=== PATIENT | female | born 1990 | race Caucasian/White ===

== ENCOUNTER 2017-06-28 12:04 | Emergency (ER) | payer MEDICAID ==
[~2017-06-28 12:04] MED LIST: AMOX-559 PO; CIPR-344 PO; HYDR-318 PO; HYDR-4309 PO; IBUP800T37 PO; LOR5/325 PO; OXYC-865 PO; SERT-173 PO
[2017-06-28 12:15] VITALS: BP 123/84
--- NOTE | 2017-06-28 12:48 | ER Report ---
History and Physical Time Seen By MD: 12:20 HPI/ROS CHIEF COMPLAINT: Dysuria, urinary tract infection symptoms HISTORY OF PRESENT ILLNESS: Patient is a 26-year-old female who presents to the emergency department complaining of burning with urination that is severe since this past . She has been self-medicating with [id number] Azo without symptomatic relief. She denies any vaginal discharge. She denies any suprapubic abdominal discomfort. She denies any prior history of STDs. Patient denies fevers or chills. Patient has no prior similar episodes. REVIEW OF SYSTEMS: Respiratory: No cough, no dyspnea. Cardiovascular: No chest pain, no palpitations. Gastrointestinal: No vomiting, no abdominal pain. Musculoskeletal: No back pain. : Burning with urination tenderness to the vulvar area. Allergies: Coded Allergies: No Known Drug Allergies (Unverified , 03/19/16) Home Meds Active Scripts Oxycodone Hcl/Acetaminophen (PERCOCET 5-325 MG TABLET) 1 Each Tablet, 1-2 EACH PO Q4-6H for PAIN, #20 TAB 0 Refills Prov:MARYCARMEN MILLER MD 06/28/17 Acyclovir (ACYCLOVIR) 400 Mg Tablet, 400 MG PO TID for 7 Days, #20 TAB 0 Refills Prov:MARYCARMEN MILLER MD 06/28/17 Hydrocodone Bit/Acetaminophen (HYDROCODON-ACETAMINOPHEN 5-325) 1 Each Tablet, 1 EACH PO Q4-6H Y for PAIN, #12 TAB 0 Refills TAKE ONE TABLET BY MOUTH EVERY 4-6 HOURS NEEDED FOR PAIN Prov:MARYCARMEN MILLER MD 01/02/17 Amoxicillin/Pot Clav 875-125 Mg Tab (AUGMENTIN 875-125 TABLET) 1 Each Tablet, 1 TAB PO Q12H, #13 TAB 0 Refills Prov:MARYCARMEN MILLER MD 01/02/17 Oxycodone Hcl/Acetaminophen (PERCOCET 5-325 MG TABLET) 1 Each Tablet, 1 EACH PO Q4-6H for PAIN, #30 TAB Prov:MARYCARMEN MILLER MD 03/19/16 Reported Medications Hydrocodone/Acetaminophen (Lortab 7.5-325 mg Tablet) 1 Each Tablet, 1-2 TAB PO Q4-6H Y for PAIN, #80 03/26/16 Ibuprofen (IBUPROFEN) 800 Mg Tablet, 1 TAB PO Q8H Y for PAIN, TAB 03/25/16 Past Medical/Surgical History Noncontributory towards the chief complaint Hx Smoking: Yes (SMOKES LESS THEN A PACK A DAY FOR 2+ HOURS) Smoking Status: Current: Every Day Smoker Exposure to Second Hand Smoke?: No Hx Substance Use Disorder: No Hx Alcohol Use: No Physical Exam General Appearance: The patient is alert, has no immediate need for airway protection and no current signs of toxicity. Gastrointestinal: Abdomen is soft and non tender, no masses, bowel sounds normal. : Exam was performed with the nurse Caitlin vidal. The patient has herpetic lesions to the vulvar area. A herpes viral PCR swab was sent .Patient gave permission for a male lean process deployment consultant to remain at bedside during exam Extremities have full range of motion and are non tender. Skin: No other rashes or lesions. Medical Decision Making Data Points Laboratory Hematology Test 06/28/17 12:07 Urine Color Yellow Urine Clarity Cloudy Urine pH 6.0 pH (4.8-9.5) Urine Specific [place] 1.001 Urine Protein Negative mg/dL (NEGATIVE) Urine Glucose (UA) Negative mg/dL (NEGATIVE) Urine Ketones Negative mg/dL (NEGATIVE) Urine Blood Large (NEGATIVE) Urine Nitrite Negative (NEGATIVE) Urine Bilirubin Negative (NEGATIVE) Urine Urobilinogen Negative mg/dL (0.2-1.9) Urine Leukocyte Esterase Moderate (NEGATIVE) Urine RBC 2 /HPF (0-2/HPF) Urine WBC None /HPF (0-5/HPF) Urine Squamous Epithelial Cells Many /LPF (</=FEW) Urine Bacteria Negative /HPF (NONE-FEW) Urine Mucus Few /HPF (NONE-FEW) Chemistry Test 06/28/17 12:07 Urine Color Yellow Urine Clarity Cloudy Urine pH 6.0 pH (4.8-9.5) Urine Specific [place] 1.001 Urine Protein Negative mg/dL (NEGATIVE) Urine Glucose (UA) Negative mg/dL (NEGATIVE) Urine Ketones Negative mg/dL (NEGATIVE) Urine Blood Large (NEGATIVE) Urine Nitrite Negative (NEGATIVE) Urine Bilirubin Negative (NEGATIVE) Urine Urobilinogen Negative mg/dL (0.2-1.9) Urine Leukocyte Esterase Moderate (NEGATIVE) Urine RBC 2 /HPF (0-2/HPF) Urine WBC None /HPF (0-5/HPF) Urine Squamous Epithelial Cells Many /LPF (</=FEW) Urine Bacteria Negative /HPF (NONE-FEW) Urine Mucus Few /HPF (NONE-FEW) Urinalysis Test 06/28/17 12:07 Urine Color Yellow Urine Clarity Cloudy Urine pH 6.0 pH (4.8-9.5) Urine Specific [place] 1.001 Urine Protein Negative mg/dL (NEGATIVE) Urine Glucose (UA) Negative mg/dL (NEGATIVE) Urine Ketones Negative mg/dL (NEGATIVE) Urine Blood Large (NEGATIVE) Urine Nitrite Negative (NEGATIVE) Urine Bilirubin Negative (NEGATIVE) Urine Urobilinogen Negative mg/dL (0.2-1.9) Urine Leukocyte Esterase Moderate (NEGATIVE) Urine RBC 2 /HPF (0-2/HPF) Urine WBC None /HPF (0-5/HPF) Urine Squamous Epithelial Cells Many /LPF (</=FEW) Urine Bacteria Negative /HPF (NONE-FEW) Urine Mucus Few /HPF (NONE-FEW) ED Course/Re-evaluation ED Course 06/28/2017 12:47:02 pm 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 Plan will be oral acyclovir as well as pain medication. I will vp & general counsel patient on safe sex practices. Decision to Disposition Date: Jun 28, 2017 Decision to Disposition Time: 13:16 Depart Departure Impression: Primary Impression: Herpes genitalis in women Condition: Improved Disposition: HOME OR SELF-CARE Referrals: AMMY AREVALO MD For routine follow-up New Scripts Hydrocodone Bit/Acetaminophen (HYDROCODON-ACETAMINOPHEN 5-325) 1 Each Tablet 1-2 EACH PO Q4-6H Y for PAIN, #20 TAB 0 Refills TAKE ONE TABLET BY MOUTH EVERY 4-6 HOURS NEEDED FOR PAIN Prov: MARYCARMEN MILLER MD 06/28/17 Acyclovir (ACYCLOVIR) 400 Mg Tablet 400 MG PO TID for 7 Days, #20 TAB 0 Refills Prov: MARYCARMEN MILLER MD 06/28/17 Patient Instructions: Genital Herpes Simplex (ED) MARYCARMEN MILLER MD Jun 28, 2017 12:48
[2017-06-28] MEDS ORDERED: ACYCLOVIR 200 MG CAP PO ONE (12:55)
[2017-06-28] MEDS ORDERED: ACYC-50 PO (12:59)
[2017-06-28] MEDS ORDERED: OXYC-865 PO ×2 (12:59→13:01)
[2017-06-28] MEDS ORDERED: PER PO (13:00)
[2017-06-28] MEDS ORDERED: LOR5/325 PO (13:16)
== END 2017-06-28 13:26 | disposition home or self-care (01) ==
LOC: ER 12:14
DX: A60.00 Herpesviral infection of urogenital system, unspecified (principal)
CPT/HCPCS: 81001; 87088; 87529; 99283

== ENCOUNTER 2017-11-30 09:04 | Emergency (ER) | payer MEDICAID ==
[~2017-11-30 09:04] MED LIST changes: +ACYC-50 PO; +PER PO
[2017-11-30] MEDS ORDERED: NS(*) 0.9% 1000 ML BAG 1,000 ML IV ONE (09:50)
[2017-11-30] MEDS ORDERED: AMPICILLIN/SULBACT (*) 3 GM VL 3 GM in NS(*) 0.9% 100 ML BAG 100 ML IVPB ONE (09:50)
[2017-11-30] MEDS ORDERED: MORPHINE 4 MG/ML SDV IVP ONE (09:50)
[2017-11-30] MEDS ORDERED: IOPAMIDOL 76% 75 ML INFUS BTL 75 ML ONE (10:05)
[2017-11-30 10:22] LABS: PLATELET COUNT, AUTOMATED 257 K/uL (150-450)
--- NOTE | 2017-11-30 11:40 | RADIOLOGY IMAGING REPORT ---
FACILITY: [facility] - [place] PATIENT NAME: Fadia Wall : 1990 MR: [id number] V: [id number] EXAM DATE: [id number] ORDERING PHYSICIAN: MARYCARMEN BARBOZA TECHNOLOGIST: Location: [facility] Patient: Fadia Wall : 1990 Visit/Account:[id number] Date of Sevice: 11/30/2017 EXAMINATION: CT Face with intravenous contrast HISTORY: Left submandibular swelling COMPARISON: Noncontrast head CT dated 03/19/2016. TECHNIQUE: Axial images were obtained from the superior aspect of the orbits through the inferior as pect of mandible with IV contrast. Coronal and sagittal reformatted images were obtained from the axi al source data. One of the following dose optimization techniques was utilized in the performance of this exam: Autom ated exposure control; adjustment of the mA and/or kV according to the patient's size; or use of an i terative reconstruction technique. Specific details can be referenced in the facility's radiology C T exam operational policy. CONTRAST: 75 mL of IV Isovue-370 FINDINGS: Soft Tissues: Soft tissue swelling overlying the left lower jaw. No drainable fluid collection. Mandible / TMJ: The left 2nd and 3rd molars have been removed and there is periapical lucency surroun ding the left 2nd premolar. Maxillae / pterygoid plates: Negative. Zygoma / zygomatic arches: Negative. Orbits: Negative. Nasal bones / nasal septum: Rightward nasal septal deviation posteriorly. Frontal bones: Negative. Sinuses: Negative. Visualized brain: Negative. IMPRESSION: 1. Soft tissue swelling over the left lower jaw with no evidence of abscess. 2. The left 2nd and 3rd mandibular molars have been removed and there is periapical lucency surround ing the left 2nd mandibular premolar. Report Dictated By: Favio Hung MD at 11/30/2017 11:31 AM Report E-Signed By: Favio Hung MD at 11/30/2017 11:35 AM WSN:[id number]
--- NOTE | 2017-11-30 11:44 | ER Report ---
History and Physical Time Seen By MD: 09:30 Hx. of Stated Complaint: DENTAL ABSCESS TO LEFT LOWER JAW. HPI/ROS CHIEF COMPLAINT: facial swelling HISTORY OF PRESENT ILLNESS: Patient presents with 2 days of swelling left side of face. She states that she had similar symptoms approximately 2 months previously and was hospitalized for facial infection. She is status post extraction of the 2 premolars on the left mandibular side and notes pain and swelling around this area. She has had chills and nausea. She does not have vomiting, abdominal pain, difficulty swallowing. She has not recently been on antibiotics in the past month, she does not have known drug allergies, and no recent medication change. She does not have any recent dental injury. REVIEW OF SYSTEMS: Constitutional: above Eyes: No discharge. ENT: able to tolerate fluids; swelling as above Cardiovascular: No chest pain, no palpitations. Respiratory: No cough, no shortness of breath. Gastrointestinal: No abdominal pain, no vomiting. Genitourinary: no uti sympotms Musculoskeletal: No back pain. Skin: No rashes. Neurological: No headache. Allergies: Coded Allergies: No Known Drug Allergies (Unverified , 03/19/16) Home Meds Discontinued Reported Medications Hydrocodone/Acetaminophen (Lortab 7.5-325 mg Tablet) 1 Each Tablet, 1-2 TAB PO Q4-6H PRN for PAIN, #80 03/26/16 Ibuprofen (IBUPROFEN) 800 Mg Tablet, 1 TAB PO Q8H PRN for PAIN, TAB 03/25/16 Discontinued Scripts Hydrocodone Bit/Acetaminophen (HYDROCODON-ACETAMINOPHEN 5-325) 1 Each Tablet, 1- 2 EACH PO Q4-6H PRN for PAIN, #20 TAB 0 Refills TAKE ONE TABLET BY MOUTH EVERY 4-6 HOURS NEEDED FOR PAIN Prov:MARYCARMEN MILLER MD 06/28/17 Acyclovir (ACYCLOVIR) 400 Mg Tablet, 400 MG PO TID for 7 Days, #20 TAB 0 Refills Prov:MARYCARMEN MILLER MD 06/28/17 Hydrocodone Bit/Acetaminophen (HYDROCODON-ACETAMINOPHEN 5-325) 1 Each Tablet, 1 EACH PO Q4-6H PRN for PAIN, #12 TAB 0 Refills TAKE ONE TABLET BY MOUTH EVERY 4-6 HOURS NEEDED FOR PAIN Prov:MARYCARMEN MILLER MD 01/02/17 Amoxicillin/Pot Clav 875-125 Mg Tab (AUGMENTIN 875-125 TABLET) 1 Each Tablet, 1 TAB PO Q12H, #13 TAB 0 Refills Prov:MARYCARMEN MILLER MD 01/02/17 Oxycodone Hcl/Acetaminophen (PERCOCET 5-325 MG TABLET) 1 Each Tablet, 1 EACH PO Q4-6H for PAIN, #30 TAB Prov:MARYCARMEN MILLER MD 03/19/16 Reviewed Nurses Notes: Yes Hx Smoking: Yes (SMOKES LESS THEN A PACK A DAY FOR 2+ HOURS) Smoking Status: Current: Every Day Smoker Exposure to Second Hand Smoke?: No Hx Substance Use Disorder: No Hx Alcohol Use: No Constitutional Vital Sign - Last 24 Hours 11/30/17 09:09 Temp 100.3 Pulse 78 Resp 18 B/P (MAP) 121/87 Pulse Ox 98 O2 Delivery Room Air Physical Exam General Appearance: [The patient is alert, has no immediate need for airway protection and no signs of toxicity.] Eyes: Pupils equal and round no pallor or injection. ENT, Mouth: left sided perimandibular edema, ttp, erythema. + L submandibular and AC LAD. + L premol Respiratory: [There are no retractions, lungs are clear to auscultation.] Cardiovascular: [Regular rate and rhythm.] [ ] Gastrointestinal: [Abdomen is soft and non tender, no masses, bowel sounds normal.] [Neurological:] [ ] [Skin:] [Warm and dry, no rashes.] [Musculoskeletal:] [Neck is supple non tender.] [Extremities are nontender, nonswollen and have full range of motion.] [ ] [DIFFERENTIAL DIAGNOSIS: After history and physical exam differential diagnosis was considered for] [ ] Medical Decision Making Data Points Result Diagram: 11/30/17 1007 11/30/17 1007 Laboratory Hematology Test 11/30/17 10:07 Red Blood Count 4.84 M/uL (4.17-5.56) Mean Corpuscular Volume 92.0 fL (80.0-96.0) Mean Corpuscular Hemoglobin 31.4 pg (26.0-33.0) Mean Corpuscular Hemoglobin Concent 34.1 g/dL (32.0-36.0) Red Cell Distribution Width 13.2 % (11.5-14.5) Mean Platelet Volume 8.7 fL (7.2-11.1) Neutrophils (%) (Auto) 81.5 % (39.4-72.5) Lymphocytes (%) (Auto) 11.5 % (17.6-49.6) Monocytes (%) (Auto) 6.2 % (4.1-12.4) Eosinophils (%) (Auto) 0.1 % (0.4-6.7) Basophils (%) (Auto) 0.7 % (0.3-1.4) Nucleated RBC Relative Count (auto) 0.0 /100WBC Neutrophils # (Auto) 6.0 K/uL (2.0-7.4) Lymphocytes # (Auto) 0.8 K/uL (1.3-3.6) Monocytes # (Auto) 0.5 K/uL (0.3-1.0) Eosinophils # (Auto) 0.0 K/uL (0.0-0.5) Basophils # (Auto) 0.1 K/uL (0.0-0.1) Nucleated RBC Absolute Count (auto) 0.00 K/uL Sodium Level 139 mmol/L (137-145) Potassium Level 3.7 mmol/L (3.5-5.0) Chloride Level 102 mmol/L (98-107) Carbon Dioxide Level 24 mmol/L (22-31) Blood Urea Nitrogen 13 mg/dl (7-18) Creatinine 0.70 mg/dl (0.52-1.04) Glomerular Filtration Rate Calc > 60.0 Random Glucose 87 mg/dl (75-110) Calcium Level 9.3 mg/dl (8.4-10.2) Total Bilirubin 1.0 mg/dl (0.2-1.3) Aspartate Amino Transf (AST/SGOT) 20 U/L (0-35) Alanine Aminotransferase (ALT/SGPT) 28 U/L (0-56) Alkaline Phosphatase 50 U/L (0-126) Total Protein 7.8 g/dl (6.3-8.2) Albumin 4.5 g/dl (3.5-5.0) Human Chorionic Gonadotropin, Qual Negative (NEGATIVE) Chemistry Test 11/30/17 10:07 White Blood Count 7.3 k/uL (4.5-11.0) Red Blood Count 4.84 M/uL (4.17-5.56) Hemoglobin 15.2 g/dL (12.0-16.0) Hematocrit 44.5 % (34.0-47.0) Mean Corpuscular Volume 92.0 fL (80.0-96.0) Mean Corpuscular Hemoglobin 31.4 pg (26.0-33.0) Mean Corpuscular Hemoglobin Concent 34.1 g/dL (32.0-36.0) Red Cell Distribution Width 13.2 % (11.5-14.5) Platelet Count 257 K/uL (150-450) Mean Platelet Volume 8.7 fL (7.2-11.1) Neutrophils (%) (Auto) 81.5 % (39.4-72.5) Lymphocytes (%) (Auto) 11.5 % (17.6-49.6) Monocytes (%) (Auto) 6.2 % (4.1-12.4) Eosinophils (%) (Auto) 0.1 % (0.4-6.7) Basophils (%) (Auto) 0.7 % (0.3-1.4) Nucleated RBC Relative Count (auto) 0.0 /100WBC Neutrophils # (Auto) 6.0 K/uL (2.0-7.4) Lymphocytes # (Auto) 0.8 K/uL (1.3-3.6) Monocytes # (Auto) 0.5 K/uL (0.3-1.0) Eosinophils # (Auto) 0.0 K/uL (0.0-0.5) Basophils # (Auto) 0.1 K/uL (0.0-0.1) Nucleated RBC Absolute Count (auto) 0.00 K/uL Glomerular Filtration Rate Calc > 60.0 Calcium Level 9.3 mg/dl (8.4-10.2) Total Bilirubin 1.0 mg/dl (0.2-1.3) Aspartate Amino Transf (AST/SGOT) 20 U/L (0-35) Alanine Aminotransferase (ALT/SGPT) 28 U/L (0-56) Alkaline Phosphatase 50 U/L (0-126) Total Protein 7.8 g/dl (6.3-8.2) Albumin 4.5 g/dl (3.5-5.0) Human Chorionic Gonadotropin, Qual Negative (NEGATIVE) ED Course/Re-evaluation ED Course Patient presents with significant facial swelling that is initially concerning for cellulitis with abscess, [place] angina, or airway compromise. However further exam, CT showed no evidence of more serious causes. Patient's symptoms improved in the emergency department especially with the expression of purulent drainage on my exam adjacent to the left second premolar. This was performed after CT was obtained, so the lucency on the CT corresponds to this area and I feel patient has no further abscess. I did recommend admission and have the hospitalist evaluate her in the [facility] apartment however he shouldn't declines admission at this time and understands risks and benefits. This is not unreasonable and I will discharge her with Augmentin, pain medication and very strict return precautions she understands and will return for any worsening symptoms. Decision to Disposition Date: Nov 30, 2017 Decision to Disposition Time: 11:58 Depart Departure Latest Vital Signs Vital Signs Date Time Temp Pulse Resp B/P (MAP) Pulse Ox O2 Delivery O2 Flow Rate FiO2 11/30/17 09:09 100.3 78 18 121/87 98 Room Air Impression: Primary Impression: Facial cellulitis Additional Impression: Periapical abscess Condition: Improved Disposition: HOME OR SELF-CARE New Scripts Docusate Sodium (COLACE) 100 Mg Capsule 100 MG PO BID for 7 Days, #14 CAPSULE Prov: MARYCARMEN BARBOZA MD 11/30/17 Hydrocodone Bit/Acetaminophen (HYDROCODON-ACETAMINOPHEN 5-325) 1 Each Tablet 1-2 EACH PO Q6H for PAIN, #12 TAB Prov: MARYCARMEN BARBOZA MD 11/30/17 Amoxicillin/Pot Clav 875-125 Mg Tab (AUGMENTIN 875-125 TABLET) 1 Each Tablet 1 TAB PO Q12H for 10 Days, #20 TAB Prov: MARYCARMEN BARBOZA MD 11/30/17 Departure Forms: ER Transition Record, Medications Reconciliation, Off Work/School Form, School or Work Release?: Work Number of days to be released: 2 Patient Portal Information Patient Instructions: Cellulitis (ED) Additional Instructions: As we discussed, please return immediately if he has worsening swelling or difficulty swallowing. He needs to follow-up with your dentist once the infection clears for reevaluation. In addition to the pain medication I recommend he take Colace to help prevent constipation from the pain medication. Problem Qualifiers MARYCARMEN BARBOZA MD Nov 30, 2017 11:44
[2017-11-30 11:59] VITALS: BP 109/72
[2017-11-30] MEDS ORDERED: DOCU-416 PO (12:04)
[2017-11-30] MEDS ORDERED: HYDR-385 PO (12:04)
[2017-11-30] MEDS ORDERED: AMOX-559 PO (12:04)
--- NOTE | 2017-11-30 13:24 | Hospitalist Consultation ---
History of Present Illness Requesting Physician Miles Barboza Reason for Consult Dental Infection History of Present Illness 27yo female with a h/o dental infection who came to the ER for facial pain and swelling. About 2 months ago, she developed a left mandibular molar infection. She had extraction of the wisdom tooth and the adjacent molar. A few days later, she had severe swelling of the left cheek that extended into her throat. She was hospitalized and put on IV abx. She did not have any debridement because a CT didn't show abscess. She was sent home on oral antibiotics and did well. Yesterday, she noted left lower canine tooth discomfort. This morning, she woke up and her cheek and gum were swollen in the left mandibular area. She denies f/c/throat swelling. She does smoke a few cigarettes a day. In the ER, they were able to extract a couple milliliters of purulent material from the gumline adjacent to a molar. She was given a dose of Ceftriaxone. History Home Meds Active Scripts Docusate Sodium (COLACE) 100 Mg Capsule, 100 MG PO BID for 7 Days, #14 CAPSULE Prov:MILES BARBOZA MD 11/30/17 Hydrocodone Bit/Acetaminophen (HYDROCODON-ACETAMINOPHEN 5-325) 1 Each Tablet, 1- 2 EACH PO Q6H for PAIN, #12 TAB Prov:MILES BARBOZA MD 11/30/17 Amoxicillin/Pot Clav 875-125 Mg Tab (AUGMENTIN 875-125 TABLET) 1 Each Tablet, 1 TAB PO Q12H for 10 Days, #20 TAB Prov:MILES BARBOZA MD 11/30/17 Discontinued Reported Medications Hydrocodone/Acetaminophen (Lortab 7.5-325 mg Tablet) 1 Each Tablet, 1-2 TAB PO Q4-6H PRN for PAIN, #80 03/26/16 Ibuprofen (IBUPROFEN) 800 Mg Tablet, 1 TAB PO Q8H PRN for PAIN, TAB 03/25/16 Discontinued Scripts Hydrocodone Bit/Acetaminophen (HYDROCODON-ACETAMINOPHEN 5-325) 1 Each Tablet, 1- 2 EACH PO Q4-6H PRN for PAIN, #20 TAB 0 Refills TAKE ONE TABLET BY MOUTH EVERY 4-6 HOURS NEEDED FOR PAIN Prov:MILES MILLER MD 06/28/17 Acyclovir (ACYCLOVIR) 400 Mg Tablet, 400 MG PO TID for 7 Days, #20 TAB 0 Refills Prov:MILES MILLER MD 06/28/17 Hydrocodone Bit/Acetaminophen (HYDROCODON-ACETAMINOPHEN 5-325) 1 Each Tablet, 1 EACH PO Q4-6H PRN for PAIN, #12 TAB 0 Refills TAKE ONE TABLET BY MOUTH EVERY 4-6 HOURS NEEDED FOR PAIN Prov:MILES MILLER MD 01/02/17 Amoxicillin/Pot Clav 875-125 Mg Tab (AUGMENTIN 875-125 TABLET) 1 Each Tablet, 1 TAB PO Q12H, #13 TAB 0 Refills Prov:MILES MILLER MD 01/02/17 Oxycodone Hcl/Acetaminophen (PERCOCET 5-325 MG TABLET) 1 Each Tablet, 1 EACH PO Q4-6H for PAIN, #30 TAB Prov:MILES MILLER MD 03/19/16 Allergies: Coded Allergies: No Known Drug Allergies (Unverified , 03/19/16) Hx Smoking: Yes (SMOKES LESS THEN A PACK A DAY FOR 2+ HOURS) Smoking Status: Current: Every Day Smoker Exposure to Second Hand Smoke?: No Caffeine Intake: Coffee Caffeine/Cups Per Day: 2-3 Hx Alcohol Use: No Hx Substance Use Disorder: No Review of Systems All Systems Reviewed/Normal: Yes, Except as Noted Exam Vital Signs Vital Signs Date Time Temp Pulse Resp B/P (MAP) Pulse Ox O2 Delivery O2 Flow Rate FiO2 11/30/17 11:59 74 16 109/72 (84) 95 Room Air 11/30/17 09:09 100.3 General Appearance: Alert, No Acute Distress Eyes: PERRLA ENT: Other (Left cheek swelling and tenderness over the mandible. She has swelling of the gumline next to a molar and canine. No swelling over the previous extraction site. Unable to express any purulent material with pressure to the cheek or gumline. No swelling or erythema into the oropharynx ) Medical Decision Making Data Points Result Diagram: 11/30/17 1007 11/30/17 1007 Item Value Date Time Neutrophils (%) (Auto) 81.5 % H 11/30/17 1007 Lymphocytes (%) (Auto) 11.5 % L 11/30/17 1007 Monocytes (%) (Auto) 6.2 % 11/30/17 1007 Eosinophils (%) (Auto) 0.1 % L 11/30/17 1007 Human Chorionic Gonadotropin, Qual Negative 11/30/171006 Total Bilirubin 1.0 mg/dl 11/30/171006 Aspartate Amino Transf (AST/SGOT) 20 U/L 11/30/171006 Alanine Aminotransferase (ALT/SGPT) 28 U/L 11/30/171006 Alkaline Phosphatase 50 U/L 11/30/171006 Total Protein 7.8 g/dl 11/30/171006 Albumin 4.5 g/dl 11/30/17 1007 EKG / Imaging Imaging CT face - 1. Soft tissue swelling over the left lower jaw with no evidence of abscess. 2. The left 2nd and 3rd mandibular molars have been removed and there is periapical lucency surrounding the left 2nd mandibular premolar. Assessment and Plan Problems: (1) Dental infection Status: Acute Assessment & Plan: Left lower second premolar and canine infection. She has a h/o hospitalization after the left lower 2nd and 3rd molars were removed and then had infection that caused throat swelling about 2 months ago. Today, it appears that she has a new infection of the premolar and not a recurrence of the previous infection. No abscess by CT. She has received a dose of Ceftriaxone. WBC wnl. She would rather go home than come in for observation. I think she can go home with Augmentin and a low threshold for coming back to the ER if she notices worsening of the infection (i.e. throat swelling). She expressed understanding for this plan. I spoke with Dr. Barboza about the plan and he is willing to have her go home. Copies to: MILES BARBOZA MD ; Venous Thromboembolism Antithrombotics Is Pt On Any Antithrombotics?: No Exam Sepsis Risk: No Definite Risk FREDA PERDOMO MD Nov 30, 2017 13:24
== END 2017-11-30 12:13 | disposition home or self-care (01) ==
LOC: ER 09:04
DX: L03.211 Cellulitis of face (principal); K04.7 Periapical abscess without sinus
CPT/HCPCS: 36415; 70487; 84703; 85025; 87040; 96365; 96375; 99284; J0295; J2270; J7030; J7050; Q9967; 82040; 82247; 82310; 82374; 82435; 82565; 82947; 84075; 84132; 84155; 84295; 84450; 84460; 84520

== ENCOUNTER 2017-12-16 07:59 | Emergency (ER) | payer MEDICAID ==
[~2017-12-16 07:59] MED LIST changes: +DOCU-416 PO; +HYDR-385 PO; -HYDR-4309 PO; +HYDR-653 PO
[2017-12-16] MEDS ORDERED: IBUP-1687 PO (08:03)
[2017-12-16] MEDS ORDERED: KETOROLAC 60 MG/2 ML VIAL IM ONE (08:10)
--- NOTE | 2017-12-16 08:12 | ER Report ---
History and Physical Time Seen By MD: 08:10 Hx. of Stated Complaint: PT REPORTS R HIP PAIN SHOOTING DOWN LEG FOR 2 WEEKS HPI/ROS CHIEF COMPLAINT: Right hip pain HISTORY OF PRESENT ILLNESS: 19 HO female comes emergency Department complaining of right hip right lumbar and radiation to her foot pain numbness and tingling and burning services is been going on episodically since her childbirth almost 6 years ago comes and goes for the last 2 weeks been getting significantly worse patient denies any urinary bladder bowel incontinence numbness or saddle paresthesias states that the pain is sharp stabbing burning to the right hip and right leg posterior in a sciatic type presentation patient has no recent falls or history of trauma patient has no additional complaints noted REVIEW OF SYSTEMS: Respiratory: No cough, no dyspnea. Cardiovascular: No chest pain, no palpitations. Gastrointestinal: No vomiting, no abdominal pain. Musculoskeletal: Right hip low back pain Remainder of the 14 system rev: Yes Allergies: Coded Allergies: No Known Drug Allergies (Unverified , 12/16/17) Home Meds Reported Medications Ibuprofen (ADVIL) 200 Mg Tablet, 1-2 TAB PO Q6-8H 12/16/17 Discontinued Scripts Docusate Sodium (COLACE) 100 Mg Capsule, 100 MG PO BID for 7 Days, #14 CAPSULE Prov:MARYCARMEN BARBOZA MD 11/30/17 Hydrocodone Bit/Acetaminophen (HYDROCODON-ACETAMINOPHEN 5-325) 1 Each Tablet, 1- 2 EACH PO Q6H for PAIN, #12 TAB Prov:MARYCARMEN BARBOZA MD 11/30/17 Amoxicillin/Pot Clav 875-125 Mg Tab (AUGMENTIN 875-125 TABLET) 1 Each Tablet, 1 TAB PO Q12H for 10 Days, #20 TAB Prov:MARYCARMEN BARBOZA MD 11/30/17 Reviewed Nurses Notes: Yes Old Medical Records Reviewed: Yes Hx Smoking: Yes (SMOKES LESS THEN A PACK A DAY FOR 2+ HOURS) Smoking Status: Current: Every Day Smoker Exposure to Second Hand Smoke?: No Hx Substance Use Disorder: No Hx Alcohol Use: No Constitutional Vital Sign - Last 24 Hours 12/16/17 12/16/17 12/16/17 12/16/17 08:04 08:04 08:14 08:44 Temp 98.7 Pulse 67 57 58 Resp 16 B/P (MAP) 107/50 107/49 (68) Pulse Ox 99 96 95 O2 Delivery Room Air 12/16/17 12/16/17 12/16/17 08:59 09:00 09:14 Pulse 53 52 B/P (MAP) 106/73 (84) Pulse Ox 94 96 Physical Exam General appearance: Alert no distress. Respiratory: Chest is non tender, lungs are clear to auscultation. Cardiac: Regular rate and rhythm [ ] Hip and low back examination pain with straight leg raise with contralateral pressure contralateral pain with elevation of the opposite leg neurovascularly intact otherwise unremarkable DIFFERENTIAL DIAGNOSIS: After history and physical exam differential diagnosis was considered for herniated disc lumbar strain low back discomfort sciatica Medical Decision Making ED Course/Re-evaluation ED Course ED clinical course medical decision making 27-year-old female with right hip lumbar and sciatica type discomfort she does have x-rays confirming a disc space narrowing at L4-L5 and L5-S1 consistent with her clinical presentation we'll start her on anti-inflammatory medications and have her follow-up with a pharmacy operations specialist Decision to Disposition Date: Dec 16, 2017 Decision to Disposition Time: 09:27 Depart Departure Latest Vital Signs Vital Signs Date Time Temp Pulse Resp B/P (MAP) Pulse Ox O2 Delivery O2 Flow Rate FiO2 12/16/17 09:14 52 96 12/16/17 09:00 106/73 (84) 12/16/17 08:04 98.7 16 Room Air Impression: Primary Impression: Sciatica Condition: Improved Disposition: HOME OR SELF-CARE Referrals: COLLEEN OLSEN MD 5 Days New Scripts Ketorolac Tromethamine (KETOROLAC TROMETHAMINE) 10 Mg Tab 10 MG PO Q6H PRN for PAIN, #12 TAB Prov: RENARD GARCIA MD 12/16/17 Patient Instructions: Sciatica (DC) RENARD GARCIA MD Dec 16, 2017 08:12
--- NOTE | 2017-12-16 08:52 | RADIOLOGY IMAGING REPORT ---
FACILITY: [facility] - [place] PATIENT NAME: Fadia Wall : 1990 MR: [id number] V: [id number] EXAM DATE: ORDERING PHYSICIAN: RENARD GARCIA TECHNOLOGIST: Location: [facility] - [place] Patient: Fadia Wall : 1990 Visit/Account:[id number] Date of Sevice: 12/16/2017 LUMBAR SPINE 2 OR 3 VIEW HISTORY: Right hip pain that radiates down the legs for 2 weeks COMPARISON: None. FINDINGS: There are 5 nonrib-bearing lumbar vertebra which demonstrate anatomic alignment. No fracture or destr uctive osseous process. Minimal disc narrowing L4-L5 and L5-S1. No facet arthrosis. IMPRESSION: Minimal degenerative disc narrowing L4-L5 and L5-S1. Otherwise, unremarkable Report Dictated By: Renard Guerrero MD at 12/16/2017 8:46 AM Report E-Signed By: Renard Guerrero MD at 12/16/2017 8:48 AM WSN:[id number]
--- NOTE | 2017-12-16 09:10 | RADIOLOGY IMAGING REPORT ---
FACILITY: [facility] - [place] PATIENT NAME: Fadia Wall : 1990 MR: [id number] V: [id number] EXAM DATE: ORDERING PHYSICIAN: RENARD GARCIA TECHNOLOGIST: Location: [facility] - [place] Patient: Fadia Wall : 1990 Visit/Account:[id number] Date of Sevice: 12/16/2017 HIP RIGHT 2 views HISTORY: pain COMPARISON: None FINDINGS: Right hip: No acute fracture or dislocation. No significant degenerative changes. No evidence of AVN. Pubic rami are intact. Pubic symphysis and SI joints: Normal Soft tissues: Normal Other findings: None significant IMPRESSION: 1. Normal right hip Report Dictated By: Reagan Black MD at 12/16/2017 9:05 AM Report E-Signed By: Reagan Black MD at 12/16/2017 9:06 AM WSN:[id number]
[2017-12-16] MEDS ORDERED: KET10 PO (09:28)
[2017-12-16 09:30] VITALS: BP 113/84
== END 2017-12-16 09:32 | disposition home or self-care (01) ==
LOC: ER 08:15
DX: M54.31 Sciatica, right side (principal)
CPT/HCPCS: 72100; 73502; 96372; 99284; J1885